=== PATIENT | female | born 2000 | race Caucasian/White ===

== ENCOUNTER 2025-06-04 16:39 | Emergency (ER) | payer OTHER, SELFPAY ==
[2025-06-04 16:40] VITALS: BP 134/91; PULSE 71; RESP 16; TEMP 36.2; O2SAT 99; BMI 29.6
--- NOTE | 2025-06-04 18:09 | EX.ED.VIS.HA ---
HPI History of Present Illness Chief Complaint: Headache Detail of Chief Complaint: Right-sided throbbing headache Informant: patient Onset/Context/Timing Onset: Days (3 days ago) Context: Sudden Timing: Continuous Quality -Headache: Positive for Throbbing Location: Right side occiput the forehead Current Severity: Moderate Maximum Severity: Severe Worsened by: Sound in light Relieved by: Nothing Associated Symptoms/Injury Associated Symptoms: Positive for Nausea and Photophobia; Negative for Fever, Vomiting, Sore Throat, Sinus Pressure, Numbness, Tingling, Preceding Aura, Visual Changes, Blurred Vision or Visual Loss Injury - RODRÍGUEZ: Negative for Direct Trauma Narrative Narrative: Patient is a 24-year-old female. She recently moved from [place]. She is no longer on any prophylactic or abortive medicine for migraines. She has not taken anything in 3 weeks. This was a decision she made with her neurologist. She states she does not have a doctor in the area. She complains of a throbbing right-sided headache from the occiput to the forehead. Complains of pressure behind her eye. She denies double vision, blurred vision loss of vision. She does endorse sonophobia and photophobia. She denies any nasal symptoms. Has trouble with speech or swallowing. She denies paresthesia, anesthesia or motor weakness upper or lower extremity. She denies problems with balance or coordination. This headache is different in the back that is lasted for 3 days. Patient reports akathisia with Toradol. She reports not been able to sleep for 3 days after droperidol. Prior similar symptoms: No Recent Illness/Hospitalization: No PFSH PFSH Medical History (Updated 06/04/25 @ 19:[address] Frank Spicer MD) Depression Anxiety Thyroid nodule Jose's disease Hx of migraines Home Medications ?Medication ?Instructions ?Recorded ?Last Taken ?Type sertraline 25 mg tablet (Zoloft) 25 mg PO DAILY 06/04/25 Unknown History Allergy/AdvReac Type Severity Reaction Status Date / Time ketorolac (From Toradol) Allergy Intermediate Other Verified 06/04/25 16:42 amoxicillin Allergy Mild Rash Verified 06/04/25 16:42 doxycycline Allergy Mild Rash Verified 06/04/25 16:42 droperidol Allergy Mild Other Verified 06/04/25 16:42 Family History no significant family his Surgical History (Updated 06/04/25 @ 18:12 by Bushra De La Cruz) History of knee surgery History of tonsillectomy and adenoidectomy Social History (Updated 06/04/25 @ 18:[address] Frank Spicer MD) Smoking Status: Never smoker substance use type: does not use ROS ROS ED Constitutional Constitutional ED: Denies chills, fever(s), subjective, sweats or weight loss Eyes Eyes: Denies blurry vision, change in vision or diplopia ENT ENT ED: Denies ear pain, rhinorrhea or sore throat Cardiovascular Cardiovascular: Denies chest pain Respiratory/Chest Respiratory/Chest: Denies cough or dyspnea Gastrointestinal Gastrointestinal: Reports nausea; Denies abdominal pain or vomiting Integumentary Denies rash Neurologic Neurologic: Reports headache(s); Denies paresthesias or weakness Endocrine Endocrinology: Denies polyphagia or polyuria Hematologic/Lymphatic Hematologic/Lymphatic: Denies easy bleeding or easy bruising EXAM Physical Exam Const Vital Signs: 06/04/25 16:40 06/04/25 18:39 Temperature 97.2 F L Temperature Source Oral Pulse Rate 71 66 Respiratory Rate 16 16 Blood Pressure 134/91 H 107/78 Blood Pressure Mean 105 87 Pulse Ox 99 100 Oxygen Delivery Method Room Air Room Air Positive well nourished and well developed Constitutional Narrative: Lights were off in the room. General Appearance ED: well developed; Negative for cyanotic, diaphoretic or pallor HEENT Reports normocephalic, TM's clear and moist mucous membranes atraumatic; Negative for temporal artery tenderness or vesicular rash Face and Sinus: Negative for sinus tenderness Tympanic Membrane ED: Yes TM's clear Eyes PERRL and EOMs intact bilaterally General Eye ED: Negative for pale conjunctiva or scleral icterus Neck no lymphadenopathy, supple, no meningeal signs and no JVD Resp normal respiratory effort and clear to auscultation bilaterally Cardio regular rate, regular rhythm, S1 normal heart sound, S2 normal heart sound and no murmurs GI non-tender and non-distended Auscultation: normoactive bowel sounds Palpation: soft Extremity normal to inspection, full ROM and normal capillary refill Neuro oriented x3, CN's II-XII intact bilaterally and no sensory deficits noted Neuro Narrative: There is no dysmetria. There is no clonus Babinski sign noted right or left. Sari Coma Scale: document GCS findings Spontaneous Obeys Commands Oriented 15 Sensorium / Orientation: awake and alert Coordination / Balance: [id number] test normal Speech: speech normal Psych Psych Narrative: Affect is flat. Skin General Skin Exam: elasticity normal and turgor normal; Negative for jaundice or pallor Lesions: no lesions Rashes: no rashes MDM MDM MDM Narrative Medical decision making narrative: Patient with headache. This may represent tension headache versus migraine not cluster. History and physical are not consistent with sinus headache. In light of her reported allergies she was treated with 25 of Benadryl and 10 of Reglan. If this does not work we will treat with simvastatin. Will obtain test since her menses has lasted longer than normal. Lab Data Labs: Laboratory Results - last 24 hr 06/04/25 18:18 Serum , Qual NEGATIVE Treatment and Re-Evaluation Narrative: Nurse informing that patient felt I was laughing at her when I was trying to help determine what medicine she was on for her migraines. I was also informed by the nurse that she would like me not to go back in the room. In light of this we will have the nurse assessed her for improvement in 30 to 60 minutes. Her nurse also informing that she was very anxious that I was ordering a test. Serum test was negative. I was informed by nurse that her headache is markedly improved. I will honor her wishes of not entering the room. I will do her discharge paperwork and send her home. Discharge Plan Triage Chief Complaint: Headache ED Provider: Frank Spicer Dx/Rx/DC Orders Clinical Impression: Intractable migraine without aura and with status migrainosus Instructions: ED, Migraine (Classical) Prescriptions: No Action sertraline [Zoloft] 25 mg tablet 25 mg PO DAILY Primary Care Provider: PHOENIX BARNARD Referrals: PHOENIX BARNARD MD [Primary Care Provider] - As Needed Print Language: Nepali Disposition Disposition: Home, Self Care
[2025-06-04] MEDS: DiphenhydrAMINE 50 MG/ML Syringe 25 MG IV (18:18)
[2025-06-04 18:39] VITALS: BP 107/78; PULSE 66; RESP 16; O2SAT 100
[2025-06-04 19:20] LABS: Internal QC Validated? YES +Cl - CLEAR BKGD; Pregnancy, Serum, hCG Quali. NEGATIVE Negative; Record Kit Lot#, Serum Preg. 0000947241
[2025-06-04 19:53] VITALS: BP 117/67; PULSE 67; RESP 18; TEMP 36.6; O2SAT 98
== END 2025-06-04 19:55 | disposition home or self-care (01) ==
PROVIDERS: Emergency Provider Emergency Medicine; PCP Family Medicine; Visit Provider Emergency Medicine
DX: G43.011 Migraine without aura, intractable, with status migrainosus (principal); F32.A Depression, unspecified; F41.9 Anxiety disorder, unspecified
CPT/HCPCS: 84703; 96374; 96375; 96376; 99283; A4216